=== PATIENT | female | born 1945 | race Caucasian/White ===

== ENCOUNTER → 2016-03-01 | Outpatient (CLI) | payer MEDICARE, MEDICAID ==
[~2016-03-01] MED LIST: ACETAMINOPHEN325 MG PO; ARICEPT ODT10 MG PO; ARICEPT10 MG PO; ASPIR-LOW81 MG PO; ASPIRIN 81M81 MG/TA2 PO; ASPIRIN E.C. 8181 MG PO; ATIVAN 0.50.5 MG/TAB PO; ATIVAN 1MG T1 MG/TAB PO; ATIVAN2 MG PO; BROVANA15 MCG/2 M IH; BUMEX2 MG PO; CALCIUM + D 6001 TA1 PO; CALCIUM600 MG PO; CENA K20 MEQ/15 PO; CENTRUM SILVER1 TA1 PO; CLEOCIN HCL300 MG PO; COLACE 100100 MG/CAP PO; COZAAR 50MG50 MG/TAB PO; CRANBERRY450 MG PO; DEPAKENE 250 MG/1 ML PO; DEPAKENE250 MG PO; DEPAKENE250 MG/5 M PO; DULCOLAX S10 MG/SUPP RC; DULCOLAX TAB5 MG PO; FLEET ENEM1 BOT/133 RC; GEODON 20 MG20 MG PO; GEODON60 MG PO; GEODON80 MG PO; HALDOL 1MG T1 MG/TAB PO; HALDOL 2MG T2 MG/TAB PO; HALDOL 5MG T5 MG/TAB PO; HALDOL 5MG/ML5 MG/ML PO; HALDOL ORAL 22 MG/ML PO; IMODIUM AD1 MG/5 ML PO; IPRATROPIUM BROM3 M1 IH; IPRATROPIUM BROM3 M1 INH; K-DUR 2020 MEQ PO; LASIX 20MG TABL20 MG PO; LASIX 40MG TABL40 MG PO; LASIX 80MG TABL80 MG PO; LAXATIVE FOR WOM5 MG PO; LEVAQUIN 5500 MG/TA1 PO; LEVAQUIN 750MG750 M1 PO; LEVOTHYROXIN0.088 MG PO; LORTAB 5/500 501 TAB PO; LOTRIMIN AF1% TP; LOTRIMIN1% TP; MEDROL 4MG DOSPA4 MG PO; MIRALAX PA17 GM/Dose PO; MUCINEX 60600 MG/TA1 PO; MUCINEX D 600 M1 TER PO; MULTIVITAMINS W PO; MYLANTA 150 ML150 M1; MYLANTA 150 ML150 M1 PO; MYLANTA 360 ML360 ML PO; NOVLOG SQ; PHENERGAN25 MG RC; PHENERGAN25 MG/ML RC; POTASSIUM CH2 MEQ/ML PO; PREDNISONE10 MG PO; PREDNISONE20 MG PO; PRILOSEC 20MG20 MG PO; PROTONIX 40MG T40 MG PO; PULMICORT0.25 MG/2 IH; PULMICORT0.5 MG/2 M IH; PULMICORT90 MCG/Act INH; ROBITUSSIN DM 105 ML PO; SYNTHROID 0.0.025 MG PO; THEO-24 20200 MG/CAP PO; TYLENOL 325MG325 MG PO; TYLENOL 500MG500 MG PO; VITAMIN C500 MG PO; WOMEN'S LAXATIVE5 MG PO; ZAROXOLYN PO; ZYVOX 600MG600 MG PO
[2016-03-01 16:06] LABS: CREATININE, serum 0.6 mg/dL (0.52-1.25); POTASSIUM 4.6 mmol/L (3.4-5.0)
== END ==
LOC: ZCOL.LAB 15:00
PROVIDERS: Internal Medicine
DX: I50.9 Heart failure, unspecified (principal)

== ENCOUNTER 2016-03-15 08:46 | Inpatient (IN) | payer MEDICARE, MEDICAID ==
[~2016-03-15] VITALS: Ht 160 cm; Wt 99.4 kg
[2016-03-15] VITALS (403 sets, daily range): BP systolic 115–128; BP diastolic 66–91; PULSE 80–86; TEMP 99.2–99.7; O2SAT 68–100
[~2016-03-15 08:46] MED LIST changes: -BUMEX2 MG PO; -CENA K20 MEQ/15 PO; -FLEET ENEM1 BOT/133 RC; -TYLENOL 500MG500 MG PO; -WOMEN'S LAXATIVE5 MG PO
[2016-03-15 09:07] LABS: ARTERIAL BLD GAS TCO2 CT 41.9; ARTERIAL BLOOD GAS BASE EXCESS 10.6 (-2-2); ARTERIAL BLOOD GAS HCO3 39.4 meq/L (22-26); ARTERIAL BLOOD GAS PHT 7.31 C (7.35-7.45); ARTERIAL BLOOD GAS PO2 73.7 mmHg (80-100); ARTERIAL BLOOD GAS PO2T 73.7 (80-100); ARTERIAL BLOOD GAS pH 7.31 (7.35-7.45); OXYHEMOGLOBIN 91.8 %
[2016-03-15 09:09] LABS: ATS? YES
[2016-03-15 09:21] LABS: BASO % 0.2 % (0.0-2.0); GRAN # 7.3 (1.4-6.5); LYMPH # 0.8 (1.2-3.4); LYMPH % 9.7 % (20.0-51.0); MEAN CELL VOLUME 87 fl (80.0-100.0); MEAN CORPUSCULAR HGB CONC 31 g/dl (33.0-37.0); MEAN PLATELET VOLUME 10.2 fl (7.4-10.4); MONO # 0.4 (0.1-0.6); MONO % 4.3 % (1.7-9.3); PLATELET COUNT 216 K/mm3 (130-400); RED BLOOD COUNT 3.69 M/mm3 (4.10-5.30); REDCELL DISTRIBUTION WIDTH-CV 16.2 % (11.5-14.5); WHITE BLOOD COUNT 8.6 K/mm3 (4.8-10.8)
[2016-03-15 09:22] LABS: HEMATOCRIT 32.1 % (37.0-47.0); HEMOGLOBIN 9.8 g/dl (12.5-16.0); MEAN CORPUSCULAR HEMOGLOBIN 27 pg (27.0-31.0)
[2016-03-15 09:36] LABS: ADJUSTED CALCIUM 8.8 mg/dL (8.4-10.2); ALBUMIN 3.6 gm/dL (3.5-5.0); BILIRUBIN,TOTAL 0.5 mg/dL (0.0-1.0); C-REACTIVE PROTEIN 6.1 mg/dL (0.0-0.9); CALCIUM 8.5 mg/dL (8.4-10.2); CREATININE, serum 0.91 mg/dL (0.52-1.25); POTASSIUM 5.1 mmol/L (3.4-5.0); TOTAL PROTEIN 7.4 gm/dL (6.4-8.2)
[2016-03-15 09:39] LABS: PH 5 (5-8); SQUAMOUS EPITHELIAL 0-2 /hpf; URINE APPEARANCE Cloudy; URINE BACTERIA Rare /hpf; URINE BILIRUBIN Negative (NEGATIVE); URINE BLOOD Negative (NEGATIVE); URINE COLOR Yellow; URINE GLUCOSE Negative (NEGATIVE); URINE KETONE Negative (NEGATIVE); URINE RBC None Seen /hpf; URINE UROBILINOGEN Negative (NEGATIVE)
[2016-03-15 09:47] LABS: TROPONIN-I 0.085 ng/mL (0.000-0.034)
[2016-03-15 09:56] LABS: INFLUENZA B NEGATIVE
[2016-03-15 10:41] LABS: ARTERIAL BLD GAS O2 SATURATION 92.2 % (92-100); ARTERIAL BLOOD GAS BASE EXCESS 10.6 (-2-2); ARTERIAL BLOOD GAS HCO3 39.5 meq/L (22-26); ARTERIAL BLOOD GAS PO2 73.1 mmHg (80-100); OXYHEMOGLOBIN 91.3 %
[2016-03-15 10:42] LABS: ALLEN TEST NO; ATS? YES
[2016-03-15] MEDS ORDERED: DEPAKENE 250 MG/1 ML PO (18:24)
[2016-03-15] MEDS ORDERED: BUMEX2 MG PO (18:24)
[2016-03-15] MEDS ORDERED: FLEET ENEM1 BOT/133 RC (18:25)
[2016-03-15] MEDS ORDERED: CENA K20 MEQ/15 PO (18:25)
[2016-03-15] MEDS ORDERED: TYLENOL 500MG500 MG PO (18:26)
[2016-03-15] MEDS ORDERED: WOMEN'S LAXATIVE5 MG PO (18:26)
[2016-03-15] MEDS ORDERED: ATIVAN 0.50.5 MG/TAB PO (18:27)
[2016-03-15 21:28] LABS: ARTERIAL BLD GAS O2 SATURATION 87.3 % (92-100); ARTERIAL BLD GAS TCO2 CT 45.4; ARTERIAL BLOOD GAS BASE EXCESS 11.3 (-2-2); ARTERIAL BLOOD GAS HCO3 42.2 meq/L (22-26); ARTERIAL BLOOD GAS PHT 7.22 C (7.35-7.45); ARTERIAL BLOOD GAS PO2 63.6 mmHg (80-100); ARTERIAL BLOOD GAS PO2T 63.6 (80-100); ARTERIAL BLOOD GAS pH 7.22 (7.35-7.45); OXYHEMOGLOBIN 86.6 %
[2016-03-15 21:30] LABS: ALLEN TEST NO; ATS? YES
[2016-03-15 22:54] LABS: ARTERIAL BLD GAS O2 SATURATION 91.9 % (92-100); ARTERIAL BLOOD GAS HCO3 38.9 meq/L (22-26); ARTERIAL BLOOD GAS PO2 80.3 mmHg (80-100); ARTERIAL BLOOD GAS PO2T 80.3 (80-100); OXYHEMOGLOBIN 91.3 %
[2016-03-15 22:56] LABS: ATS? YES
[2016-03-16] VITALS (1080 sets, daily range): BP systolic 112–146; BP diastolic 50–81; PULSE 74–97; TEMP 97.5–99.5; O2SAT 85–100
[2016-03-16 01:16] LABS: ARTERIAL BLD GAS O2 SATURATION 96.7 % (92-100); ARTERIAL BLD GAS TCO2 CT 35.1; ARTERIAL BLOOD GAS BASE EXCESS 7.9 (-2-2); ARTERIAL BLOOD GAS HCO3 33.5 meq/L (22-26); ARTERIAL BLOOD GAS PHT 7.42 C (7.35-7.45); ARTERIAL BLOOD GAS PO2 84.4 mmHg (80-100); ARTERIAL BLOOD GAS PO2T 84.4 (80-100); ARTERIAL BLOOD GAS pH 7.42 (7.35-7.45); ATS? NO; OXYHEMOGLOBIN 96.1 %
[2016-03-16 05:17] LABS: ARTERIAL BLD GAS O2 SATURATION 98.6 % (92-100); ARTERIAL BLD GAS TCO2 CT 28.4; ARTERIAL BLOOD GAS BASE EXCESS 4.5 (-2-2); ARTERIAL BLOOD GAS HCO3 27.4 meq/L (22-26); ARTERIAL BLOOD GAS PHT 7.52 C (7.35-7.45); ARTERIAL BLOOD GAS pH 7.52 (7.35-7.45); OXYHEMOGLOBIN 97.7 %
[2016-03-16 05:18] LABS: ALLEN TEST NO; ARTERIAL BLOOD GAS PO2 131.3 mmHg (80-100); ARTERIAL BLOOD GAS PO2T 131.3 (80-100); ATS? NO
[2016-03-16 05:54] LABS: BASO % 0.1 % (0.0-2.0); GRAN # 6.1 (1.4-6.5); GRAN % 85.1 % (42.2-75.2); LYMPH # 0.6 (1.2-3.4); LYMPH % 7.7 % (20.0-51.0); MEAN CELL VOLUME 87 fl (80.0-100.0); MEAN CORPUSCULAR HGB CONC 30 g/dl (33.0-37.0); MEAN PLATELET VOLUME 10.3 fl (7.4-10.4); MONO # 0.5 (0.1-0.6); MONO % 6.7 % (1.7-9.3); PLATELET COUNT 209 K/mm3 (130-400); RED BLOOD COUNT 3.36 M/mm3 (4.10-5.30); REDCELL DISTRIBUTION WIDTH-CV 15.9 % (11.5-14.5); WHITE BLOOD COUNT 7.2 K/mm3 (4.8-10.8)
[2016-03-16 06:00] LABS: HEMATOCRIT 29.3 % (37.0-47.0); HEMOGLOBIN 8.8 g/dl (12.5-16.0); MEAN CORPUSCULAR HEMOGLOBIN 26 pg (27.0-31.0)
[2016-03-16 06:03] LABS: ALBUMIN 3.3 gm/dL (3.5-5.0); BILIRUBIN,TOTAL 0.6 mg/dL (0.0-1.0); CALCIUM 8.4 mg/dL (8.4-10.2); CREATININE, serum 0.66 mg/dL (0.52-1.25); MAGNESIUM 2.1 mg/dL (1.6-2.3); PHOSPHOROUS 2.3 mg/dL (2.5-4.5); POTASSIUM 3.9 mmol/L (3.4-5.0); TOTAL PROTEIN 6.8 gm/dL (6.4-8.2)
[2016-03-16 06:20] LABS: TROPONIN-I 0.079 ng/mL (0.000-0.034)
[2016-03-16 09:09] LABS: ARTERIAL BLD GAS TCO2 CT 36.7; ARTERIAL BLOOD GAS BASE EXCESS 10.5 (-2-2); ARTERIAL BLOOD GAS HCO3 35.2 meq/L (22-26); ARTERIAL BLOOD GAS PHT 7.48 C (7.35-7.45); ARTERIAL BLOOD GAS PO2 52.2 mmHg (80-100); ARTERIAL BLOOD GAS PO2T 52.2 (80-100); ARTERIAL BLOOD GAS pH 7.48 (7.35-7.45); OXYHEMOGLOBIN 88.4 %
[2016-03-16 09:10] LABS: ATS? NO
[2016-03-16 15:23] LABS: ARTERIAL BLD GAS O2 SATURATION 97.8 % (92-100); ARTERIAL BLD GAS TCO2 CT 37.4; ARTERIAL BLOOD GAS BASE EXCESS 9.5 (-2-2); ARTERIAL BLOOD GAS HCO3 35.6 meq/L (22-26); ARTERIAL BLOOD GAS PHT 7.41 C (7.35-7.45); ARTERIAL BLOOD GAS PO2 119.1 mmHg (80-100); ARTERIAL BLOOD GAS PO2T 119.1 (80-100); ARTERIAL BLOOD GAS pH 7.41 (7.35-7.45); OXYHEMOGLOBIN 96.9 %
[2016-03-16 15:25] LABS: ATS? NO
[2016-03-17] VITALS (1325 sets, daily range): BP systolic 126–147; BP diastolic 53–70; PULSE 58–79; TEMP 97.6–99.6; O2SAT 72–100
[2016-03-17 01:08] LABS: ARTERIAL BLD GAS O2 SATURATION 98.8 % (92-100); ARTERIAL BLD GAS TCO2 CT 33.5; ARTERIAL BLOOD GAS BASE EXCESS 7.5 (-2-2); ARTERIAL BLOOD GAS HCO3 32.1 meq/L (22-26); ARTERIAL BLOOD GAS PHT 7.46 C (7.35-7.45); ARTERIAL BLOOD GAS pH 7.46 (7.35-7.45)
[2016-03-17 01:09] LABS: ALLEN TEST NO; ARTERIAL BLOOD GAS PO2 169.7 mmHg (80-100); ARTERIAL BLOOD GAS PO2T 169.7 (80-100); ATS? NO
[2016-03-17 05:07] LABS: ARTERIAL BLD GAS O2 SATURATION 98.4 % (92-100); ARTERIAL BLD GAS TCO2 CT 31.5; ARTERIAL BLOOD GAS BASE EXCESS 5.8 (-2-2); ARTERIAL BLOOD GAS HCO3 30.2 meq/L (22-26); ARTERIAL BLOOD GAS PHT 7.46 C (7.35-7.45); ARTERIAL BLOOD GAS pH 7.46 (7.35-7.45); OXYHEMOGLOBIN 97.5 %
[2016-03-17 05:09] LABS: ALLEN TEST NO; ATS? NO
[2016-03-17 05:25] LABS: BASO % 0.2 % (0.0-2.0); GRAN % 77.8 % (42.2-75.2); LYMPH # 0.9 (1.2-3.4); LYMPH % 13.9 % (20.0-51.0); MEAN CELL VOLUME 83 fl (80.0-100.0); MEAN CORPUSCULAR HGB CONC 32 g/dl (33.0-37.0); MEAN PLATELET VOLUME 10.3 fl (7.4-10.4); MONO # 0.5 (0.1-0.6); MONO % 7.5 % (1.7-9.3); PLATELET COUNT 203 K/mm3 (130-400); RED BLOOD COUNT 3.47 M/mm3 (4.10-5.30); REDCELL DISTRIBUTION WIDTH-CV 15.8 % (11.5-14.5); WHITE BLOOD COUNT 6.4 K/mm3 (4.8-10.8)
[2016-03-17 05:26] LABS: HEMOGLOBIN 9.2 g/dl (12.5-16.0); MEAN CORPUSCULAR HEMOGLOBIN 27 pg (27.0-31.0)
[2016-03-17 05:27] LABS: HEMATOCRIT 28.8 % (37.0-47.0)
[2016-03-17 05:39] LABS: ADJUSTED CALCIUM 8.6 mg/dL (8.4-10.2); ALBUMIN 3.1 gm/dL (3.5-5.0); BILIRUBIN,TOTAL 0.4 mg/dL (0.0-1.0); CALCIUM 7.9 mg/dL (8.4-10.2); CREATININE, serum 0.72 mg/dL (0.52-1.25); PHOSPHOROUS 3.8 mg/dL (2.5-4.5); POTASSIUM 3.7 mmol/L (3.4-5.0); TOTAL PROTEIN 6.4 gm/dL (6.4-8.2)
[2016-03-18] VITALS (948 sets, daily range): BP systolic 113–159; BP diastolic 41–63; PULSE 53–74; TEMP 97–98.8; O2SAT 62–100
[2016-03-18 04:43] LABS: ARTERIAL BLD GAS O2 SATURATION 97.1 % (92-100); ARTERIAL BLD GAS TCO2 CT 30.8; ARTERIAL BLOOD GAS HCO3 29.3 meq/L (22-26); ARTERIAL BLOOD GAS PHT 7.41 C (7.35-7.45); ARTERIAL BLOOD GAS PO2 102.1 mmHg (80-100); ARTERIAL BLOOD GAS PO2T 102.1 (80-100); ARTERIAL BLOOD GAS pH 7.41 (7.35-7.45); OXYHEMOGLOBIN 96.2 %
[2016-03-18 04:46] LABS: ALLEN TEST NO
[2016-03-18 05:46] LABS: MEAN CELL VOLUME 84 fl (80.0-100.0); MEAN CORPUSCULAR HGB CONC 32 g/dl (33.0-37.0); MEAN PLATELET VOLUME 10.4 fl (7.4-10.4); PLATELET COUNT 191 K/mm3 (130-400); RED BLOOD COUNT 3.58 M/mm3 (4.10-5.30); REDCELL DISTRIBUTION WIDTH-CV 16.1 % (11.5-14.5); WHITE BLOOD COUNT 6.6 K/mm3 (4.8-10.8)
[2016-03-18 05:58] LABS: ADJUSTED CALCIUM 8.6 mg/dL (8.4-10.2); ALBUMIN 2.9 gm/dL (3.5-5.0); BILIRUBIN,TOTAL 0.3 mg/dL (0.0-1.0); CALCIUM 7.7 mg/dL (8.4-10.2); CREATININE, serum 0.68 mg/dL (0.52-1.25); PHOSPHOROUS 3.5 mg/dL (2.5-4.5); POTASSIUM 3.4 mmol/L (3.4-5.0); TOTAL PROTEIN 6.1 gm/dL (6.4-8.2)
[2016-03-18 05:59] LABS: HEMOGLOBIN 9.5 g/dl (12.5-16.0); MEAN CORPUSCULAR HEMOGLOBIN 27 pg (27.0-31.0)
[2016-03-18 06:00] LABS: ADD PATHOLOGY DIFF REVIEW NO
[2016-03-18 08:23] LABS: BAND 17 % (0-10); METAMYELOCYTE 2 % (0-0); MYELOCYTE 1 % (0-0); NEUTROPHILS 66 % (42.0-75.2); TOTAL CELLS COUNTED 100
[2016-03-18 08:24] LABS: ANISOCYTOSIS 2+; PLATELET ESTIMATE NORMAL (NORMAL)
[2016-03-18 08:26] LABS: HYPOCHROMIA 1+; TARGET CELLS 2+
[2016-03-19] VITALS (1146 sets, daily range): BP systolic 129–169; BP diastolic 53–99; PULSE 51–73; TEMP 96.3–98; O2SAT 70–100
[2016-03-19 05:17] LABS: ARTERIAL BLD GAS O2 SATURATION 96.7 % (92-100); ARTERIAL BLD GAS TCO2 CT 29.4; ARTERIAL BLOOD GAS BASE EXCESS 2.1 (-2-2); ARTERIAL BLOOD GAS HCO3 27.9 meq/L (22-26); ARTERIAL BLOOD GAS PO2 94.6 mmHg (80-100); ARTERIAL BLOOD GAS pH 7.38 (7.35-7.45)
[2016-03-19 05:18] LABS: ALLEN TEST NO; ATS? NO
[2016-03-19 05:54] LABS: MEAN CELL VOLUME 84 fl (80.0-100.0); MEAN CORPUSCULAR HGB CONC 32 g/dl (33.0-37.0); MEAN PLATELET VOLUME 11.1 fl (7.4-10.4); PLATELET COUNT 200 K/mm3 (130-400); RED BLOOD COUNT 3.82 M/mm3 (4.10-5.30); REDCELL DISTRIBUTION WIDTH-CV 16.4 % (11.5-14.5); WHITE BLOOD COUNT 6.5 K/mm3 (4.8-10.8)
[2016-03-19 05:57] LABS: ADD PATHOLOGY DIFF REVIEW NO; HEMATOCRIT 32.2 % (37.0-47.0); HEMOGLOBIN 10.2 g/dl (12.5-16.0); MEAN CORPUSCULAR HEMOGLOBIN 27 pg (27.0-31.0)
[2016-03-19 06:04] LABS: ADJUSTED CALCIUM 8.9 mg/dL (8.4-10.2); ALBUMIN 2.9 gm/dL (3.5-5.0); BILIRUBIN,TOTAL 0.3 mg/dL (0.0-1.0); CREATININE, serum 0.64 mg/dL (0.52-1.25)
[2016-03-19 07:36] LABS: ANISOCYTOSIS 1+; BAND 5 % (0-10); HYPOCHROMIA 2+; NEUTROPHILS 71 % (42.0-75.2); TOTAL CELLS COUNTED 100
[2016-03-19 07:37] LABS: MICROCYTOSIS 2+
[2016-03-19 09:39] LABS: ARTERIAL BLD GAS O2 SATURATION 96.7 % (92-100); ARTERIAL BLD GAS TCO2 CT 29.4; ARTERIAL BLOOD GAS BASE EXCESS 2.1 (-2-2); ARTERIAL BLOOD GAS HCO3 27.9 meq/L (22-26); ARTERIAL BLOOD GAS PHT 7.38 C (7.35-7.45); ARTERIAL BLOOD GAS PO2 94.6 mmHg (80-100); ARTERIAL BLOOD GAS PO2T 94.6 (80-100); ARTERIAL BLOOD GAS pH 7.38 (7.35-7.45)
[2016-03-19 14:07] LABS: ATS? NO
[2016-03-20] VITALS (1156 sets, daily range): BP systolic 111–159; BP diastolic 55–79; PULSE 53–64; TEMP 96.4–97.8; O2SAT 49–100
[2016-03-20 04:52] LABS: ARTERIAL BLOOD GAS pH 7.37 (7.35-7.45)
[2016-03-20 04:53] LABS: ALLEN TEST YES; ALLENS TEST RESULT PASS; ARTERIAL BLD GAS O2 SATURATION 94.6 % (92-100); ARTERIAL BLD GAS TCO2 CT 34.5; ARTERIAL BLOOD GAS BASE EXCESS 6.1 (-2-2); ARTERIAL BLOOD GAS HCO3 32.7 meq/L (22-26); ARTERIAL BLOOD GAS PO2 76.2 mmHg (80-100); ATS? YES
[2016-03-20 05:48] LABS: MEAN CELL VOLUME 84 fl (80.0-100.0); MEAN CORPUSCULAR HGB CONC 32 g/dl (33.0-37.0); MEAN PLATELET VOLUME 10.6 fl (7.4-10.4); PLATELET COUNT 197 K/mm3 (130-400); RED BLOOD COUNT 3.87 M/mm3 (4.10-5.30); REDCELL DISTRIBUTION WIDTH-CV 16.6 % (11.5-14.5); WHITE BLOOD COUNT 6.8 K/mm3 (4.8-10.8)
[2016-03-20 06:00] LABS: CALCIUM 7.9 mg/dL (8.4-10.2); CREATININE, serum 0.61 mg/dL (0.52-1.25); MAGNESIUM 2.1 mg/dL (1.6-2.3); PHOSPHOROUS 3.4 mg/dL (2.5-4.5); POTASSIUM 3.4 mmol/L (3.4-5.0)
[2016-03-20 06:03] LABS: HEMATOCRIT 32.5 % (37.0-47.0); HEMOGLOBIN 10.3 g/dl (12.5-16.0); MEAN CORPUSCULAR HEMOGLOBIN 27 pg (27.0-31.0)
[2016-03-20 06:04] LABS: ADD PATHOLOGY DIFF REVIEW NO
[2016-03-20 06:06] LABS: ARTERIAL BLD GAS O2 SATURATION 94.6 % (92-100); ARTERIAL BLD GAS TCO2 CT 34.5; ARTERIAL BLOOD GAS BASE EXCESS 6.1 (-2-2); ARTERIAL BLOOD GAS HCO3 32.7 meq/L (22-26); ARTERIAL BLOOD GAS PHT 7.37 C (7.35-7.45); ARTERIAL BLOOD GAS PO2 76.2 mmHg (80-100); ARTERIAL BLOOD GAS PO2T 76.2 (80-100); ARTERIAL BLOOD GAS pH 7.37 (7.35-7.45)
[2016-03-20 06:17] LABS: ANISOCYTOSIS 1+; BAND 23 % (0-10); METAMYELOCYTE 2 % (0-0); NEUTROPHILS 55 % (42.0-75.2); PLATELET ESTIMATE NORMAL (NORMAL); TOTAL CELLS COUNTED 100
[2016-03-20 11:29] LABS: ATS? NO
[2016-03-20 12:21] LABS: ARTERIAL BLD GAS O2 SATURATION 96.2 % (92-100); ARTERIAL BLD GAS TCO2 CT 36.8; ARTERIAL BLOOD GAS BASE EXCESS 6.1 (-2-2); ARTERIAL BLOOD GAS HCO3 34.6 meq/L (22-26); ARTERIAL BLOOD GAS PHT 7.31 C (7.35-7.45); ARTERIAL BLOOD GAS PO2 94.7 mmHg (80-100); ARTERIAL BLOOD GAS PO2T 94.7 (80-100); ARTERIAL BLOOD GAS pH 7.31 (7.35-7.45); OXYHEMOGLOBIN 95.3 %
[2016-03-20 12:53] LABS: ARTERIAL BLOOD GAS pH 7.31 (7.35-7.45)
[2016-03-20 12:54] LABS: ARTERIAL BLOOD GAS BASE EXCESS 6.1 (-2-2); ARTERIAL BLOOD GAS HCO3 34.6 meq/L (22-26); ARTERIAL BLOOD GAS PO2 94.7 mmHg (80-100)
[2016-03-20 12:55] LABS: ALLEN TEST NO; ARTERIAL BLD GAS O2 SATURATION 96.2 % (92-100); ARTERIAL BLD GAS TCO2 CT 36.8; ATS? YES
[2016-03-20 14:46] LABS: ARTERIAL BLD GAS O2 SATURATION 96.5 % (92-100); ARTERIAL BLD GAS TCO2 CT 36.6; ARTERIAL BLOOD GAS BASE EXCESS 6.6 (-2-2); ARTERIAL BLOOD GAS HCO3 34.6 meq/L (22-26); ARTERIAL BLOOD GAS PHT 7.33 C (7.35-7.45); ARTERIAL BLOOD GAS PO2 95.4 mmHg (80-100); ARTERIAL BLOOD GAS PO2T 95.4 (80-100); ARTERIAL BLOOD GAS pH 7.33 (7.35-7.45); OXYHEMOGLOBIN 95.9 %
[2016-03-20 14:48] LABS: ATS? YES
[2016-03-20 17:01] LABS: ATS? YES
[2016-03-20 19:59] LABS: ARTERIAL BLD GAS O2 SATURATION 95.3 % (92-100); ARTERIAL BLD GAS TCO2 CT 29.9; ARTERIAL BLOOD GAS BASE EXCESS 3.3 (-2-2); ARTERIAL BLOOD GAS HCO3 28.5 meq/L (22-26); ARTERIAL BLOOD GAS PHT 7.41 C (7.35-7.45); ARTERIAL BLOOD GAS PO2 79.8 mmHg (80-100); ARTERIAL BLOOD GAS PO2T 79.8 (80-100); ARTERIAL BLOOD GAS pH 7.41 (7.35-7.45); OXYHEMOGLOBIN 94.6 %
[2016-03-20 20:02] LABS: ALLEN TEST YES; ALLENS TEST RESULT PASS; ATS? YES
[2016-03-21] VITALS (1439 sets, daily range): BP systolic 120–149; BP diastolic 60–87; PULSE 51–87; TEMP 97.2–98.5; O2SAT 91–100
[2016-03-21 04:52] LABS: ARTERIAL BLD GAS O2 SATURATION 94.2 % (92-100); ARTERIAL BLD GAS TCO2 CT 34.8; ARTERIAL BLOOD GAS BASE EXCESS 7.4 (-2-2); ARTERIAL BLOOD GAS HCO3 33.2 meq/L (22-26); ARTERIAL BLOOD GAS PHT 7.42 C (7.35-7.45); ARTERIAL BLOOD GAS PO2 73.4 mmHg (80-100); ARTERIAL BLOOD GAS PO2T 73.4 (80-100); ARTERIAL BLOOD GAS pH 7.42 (7.35-7.45); OXYHEMOGLOBIN 93.6 %
[2016-03-21 05:13] LABS: GRAN # 5.6 (1.4-6.5); GRAN % 83.7 % (42.2-75.2); LYMPH # 0.7 (1.2-3.4); LYMPH % 10.5 % (20.0-51.0); MEAN CELL VOLUME 83 fl (80.0-100.0); MEAN CORPUSCULAR HGB CONC 33 g/dl (33.0-37.0); MEAN PLATELET VOLUME 10.6 fl (7.4-10.4); MONO # 0.3 (0.1-0.6); MONO % 4.5 % (1.7-9.3); PLATELET COUNT 229 K/mm3 (130-400); RED BLOOD COUNT 3.84 M/mm3 (4.10-5.30); REDCELL DISTRIBUTION WIDTH-CV 16.5 % (11.5-14.5); WHITE BLOOD COUNT 6.7 K/mm3 (4.8-10.8)
[2016-03-21 05:15] LABS: HEMATOCRIT 31.9 % (37.0-47.0); HEMOGLOBIN 10.5 g/dl (12.5-16.0); MEAN CORPUSCULAR HEMOGLOBIN 27 pg (27.0-31.0)
[2016-03-21 05:30] LABS: CALCIUM 7.9 mg/dL (8.4-10.2); CREATININE, serum 0.59 mg/dL (0.52-1.25); MAGNESIUM 2.1 mg/dL (1.6-2.3); PHOSPHOROUS 3.6 mg/dL (2.5-4.5)
[2016-03-21 05:32] LABS: ALLEN TEST YES; ALLENS TEST RESULT PASS; ATS? YES
[2016-03-22] VITALS (1276 sets, daily range): BP systolic 107–149; BP diastolic 57–105; PULSE 60–107; TEMP 97–98.4; O2SAT 55–100
[2016-03-22 04:26] LABS: ALLEN TEST YES; ALLENS TEST RESULT PASS; ARTERIAL BLD GAS O2 SATURATION 96.2 % (92-100); ARTERIAL BLD GAS TCO2 CT 33.2; ARTERIAL BLOOD GAS BASE EXCESS 6.1 (-2-2); ARTERIAL BLOOD GAS HCO3 31.7 meq/L (22-26); ARTERIAL BLOOD GAS PHT 7.42 C (7.35-7.45); ARTERIAL BLOOD GAS pH 7.42 (7.35-7.45); ATS? YES; OXYHEMOGLOBIN 95.7 %
[2016-03-22 06:43] LABS: MEAN CELL VOLUME 84 fl (80.0-100.0); MEAN CORPUSCULAR HGB CONC 31 g/dl (33.0-37.0); MEAN PLATELET VOLUME 10.4 fl (7.4-10.4); PLATELET COUNT 225 K/mm3 (130-400); RED BLOOD COUNT 3.74 M/mm3 (4.10-5.30); REDCELL DISTRIBUTION WIDTH-CV 16.9 % (11.5-14.5); WHITE BLOOD COUNT 6.1 K/mm3 (4.8-10.8)
[2016-03-22 06:45] LABS: HEMATOCRIT 31.3 % (37.0-47.0); HEMOGLOBIN 9.8 g/dl (12.5-16.0); MEAN CORPUSCULAR HEMOGLOBIN 26 pg (27.0-31.0)
[2016-03-22 06:46] LABS: ADD PATHOLOGY DIFF REVIEW NO
[2016-03-22 06:51] LABS: CREATININE, serum 0.59 mg/dL (0.52-1.25); MAGNESIUM 2.1 mg/dL (1.6-2.3); PHOSPHOROUS 3.8 mg/dL (2.5-4.5); POTASSIUM 3.4 mmol/L (3.4-5.0)
[2016-03-22 07:13] LABS: BAND 4 % (0-10); HYPOCHROMIA 2+; METAMYELOCYTE 1 % (0-0); MYELOCYTE 2 % (0-0); NEUTROPHILS 71 % (42.0-75.2); PLATELET ESTIMATE NORMAL (NORMAL); TOTAL CELLS COUNTED 100
[2016-03-23] VITALS (819 sets, daily range): BP systolic 105–156; BP diastolic 50–83; PULSE 77–99; TEMP 97–98.7; O2SAT 79–100
[2016-03-23 04:24] LABS: ALLEN TEST YES; ALLENS TEST RESULT PASS; ARTERIAL BLD GAS O2 SATURATION 95.7 % (92-100); ARTERIAL BLD GAS TCO2 CT 35.8; ARTERIAL BLOOD GAS BASE EXCESS 6.5 (-2-2); ARTERIAL BLOOD GAS HCO3 33.8 meq/L (22-26); ARTERIAL BLOOD GAS PHT 7.36 C (7.35-7.45); ARTERIAL BLOOD GAS PO2 86.6 mmHg (80-100); ARTERIAL BLOOD GAS PO2T 86.6 (80-100); ARTERIAL BLOOD GAS pH 7.36 (7.35-7.45); ATS? YES; OXYHEMOGLOBIN 94.7 %
[2016-03-23 05:43] LABS: MEAN CELL VOLUME 83 fl (80.0-100.0); MEAN CORPUSCULAR HGB CONC 32 g/dl (33.0-37.0); MEAN PLATELET VOLUME 10.1 fl (7.4-10.4); PLATELET COUNT 265 K/mm3 (130-400); RED BLOOD COUNT 4.19 M/mm3 (4.10-5.30); REDCELL DISTRIBUTION WIDTH-CV 16.8 % (11.5-14.5); WHITE BLOOD COUNT 9.2 K/mm3 (4.8-10.8)
[2016-03-23 05:48] LABS: HEMATOCRIT 34.9 % (37.0-47.0); HEMOGLOBIN 11.1 g/dl (12.5-16.0); MEAN CORPUSCULAR HEMOGLOBIN 26 pg (27.0-31.0)
[2016-03-23 05:49] LABS: ADD PATHOLOGY DIFF REVIEW NO
[2016-03-23 06:02] LABS: CALCIUM 8.6 mg/dL (8.4-10.2); CREATININE, serum 0.59 mg/dL (0.52-1.25); MAGNESIUM 2.1 mg/dL (1.6-2.3); PHOSPHOROUS 3.7 mg/dL (2.5-4.5); POTASSIUM 3.6 mmol/L (3.4-5.0)
[2016-03-23 06:07] LABS: ANISOCYTOSIS 1+; BAND 4 % (0-10); METAMYELOCYTE 1 % (0-0); NEUTROPHILS 72 % (42.0-75.2); TARGET CELLS 1+; TOTAL CELLS COUNTED 100
[2016-03-23 06:08] LABS: PLATELET ESTIMATE NORMAL (NORMAL)
[2016-03-24] VITALS (9 sets, daily range): BP systolic 80–129; BP diastolic 38–75; PULSE 50–120; TEMP 97–98.8
[2016-03-24 07:22] LABS: BASO % 0.1 % (0.0-2.0); EOS # 0.1 (0.0-0.7); EOS % 0.4 % (0-4.0); GRAN % 74.6 % (42.2-75.2); LYMPH # 1.8 (1.2-3.4); LYMPH % 14.7 % (20.0-51.0); MEAN CELL VOLUME 83 fl (80.0-100.0); MEAN CORPUSCULAR HGB CONC 32 g/dl (33.0-37.0); MEAN PLATELET VOLUME 10.4 fl (7.4-10.4); MONO % 8.2 % (1.7-9.3); PLATELET COUNT 256 K/mm3 (130-400); RED BLOOD COUNT 3.83 M/mm3 (4.10-5.30); REDCELL DISTRIBUTION WIDTH-CV 16.6 % (11.5-14.5); WHITE BLOOD COUNT 12.1 K/mm3 (4.8-10.8)
[2016-03-24 07:37] LABS: CALCIUM 8.8 mg/dL (8.4-10.2); CREATININE, serum 0.74 mg/dL (0.52-1.25); MAGNESIUM 2.2 mg/dL (1.6-2.3); PHOSPHOROUS 3.6 mg/dL (2.5-4.5); POTASSIUM 3.9 mmol/L (3.4-5.0)
[2016-03-24 07:39] LABS: HEMATOCRIT 31.7 % (37.0-47.0); MEAN CORPUSCULAR HEMOGLOBIN 26 pg (27.0-31.0)
[2016-03-24 10:24] LABS: THEOPHYLLINE 14.8 ug/mL (10.0-20.0)
[2016-03-25] VITALS (347 sets, daily range): BP systolic 54–170; BP diastolic 31–81; PULSE 73–122; TEMP 97–98.5; O2SAT 85–100
[2016-03-25 06:41] LABS: BASO % 0.1 % (0.0-2.0); EOS # 0.1 (0.0-0.7); EOS % 0.3 % (0-4.0); GRAN # 12.3 (1.4-6.5); GRAN % 79.3 % (42.2-75.2); LYMPH # 1.6 (1.2-3.4); LYMPH % 10.3 % (20.0-51.0); MEAN CELL VOLUME 84 fl (80.0-100.0); MEAN CORPUSCULAR HGB CONC 31 g/dl (33.0-37.0); MONO # 1.3 (0.1-0.6); MONO % 8.7 % (1.7-9.3); PLATELET COUNT 224 K/mm3 (130-400); RED BLOOD COUNT 3.56 M/mm3 (4.10-5.30); REDCELL DISTRIBUTION WIDTH-CV 16.5 % (11.5-14.5); WHITE BLOOD COUNT 15.5 K/mm3 (4.8-10.8)
[2016-03-25 06:45] LABS: HEMATOCRIT 29.9 % (37.0-47.0); HEMOGLOBIN 9.4 g/dl (12.5-16.0); MEAN CORPUSCULAR HEMOGLOBIN 26 pg (27.0-31.0)
[2016-03-25 06:53] LABS: CALCIUM 8.9 mg/dL (8.4-10.2); CREATININE, serum 0.71 mg/dL (0.52-1.25); MAGNESIUM 2.2 mg/dL (1.6-2.3); PHOSPHOROUS 3.5 mg/dL (2.5-4.5); POTASSIUM 3.9 mmol/L (3.4-5.0)
[2016-03-25 16:36] LABS: ADD PATHOLOGY DIFF REVIEW NO; CALCIUM 9.1 mg/dL (8.4-10.2); CREATININE, serum 0.86 mg/dL (0.52-1.25); HEMATOCRIT 34.6 % (37.0-47.0); HEMOGLOBIN 10.1 g/dl (12.5-16.0); MEAN CELL VOLUME 90 fl (80.0-100.0); MEAN CORPUSCULAR HEMOGLOBIN 26 pg (27.0-31.0); MEAN CORPUSCULAR HGB CONC 29 g/dl (33.0-37.0); MEAN PLATELET VOLUME 10.2 fl (7.4-10.4); PHOSPHOROUS 7.2 mg/dL (2.5-4.5); PLATELET COUNT 234 K/mm3 (130-400); POTASSIUM 4.4 mmol/L (3.4-5.0); RED BLOOD COUNT 3.85 M/mm3 (4.10-5.30); REDCELL DISTRIBUTION WIDTH-CV 17.2 % (11.5-14.5); WHITE BLOOD COUNT 17.5 K/mm3 (4.8-10.8)
[2016-03-25 16:44] LABS: TROPONIN-I 0.042 ng/mL (0.000-0.034)
[2016-03-25 17:15] LABS: ANISOCYTOSIS 2+; BAND 8 % (0-10); NEUTROPHILS 71 % (42.0-75.2); PLATELET ESTIMATE NORMAL (NORMAL); TOTAL CELLS COUNTED 100
[2016-03-25 17:26] LABS: ARTERIAL BLD GAS O2 SATURATION 99.1 % (92-100); ARTERIAL BLD GAS TCO2 CT 37.2; ARTERIAL BLOOD GAS BASE EXCESS 8.7 (-2-2); ARTERIAL BLOOD GAS HCO3 35.4 meq/L (22-26); ARTERIAL BLOOD GAS PHT 7.38 C (7.35-7.45); ARTERIAL BLOOD GAS pH 7.38 (7.35-7.45); OXYHEMOGLOBIN 98.5 %
[2016-03-25 17:27] LABS: ABG VENTILATOR TIDAL VOLUME 420 mL; ATS? YES
[2016-03-25 19:54] LABS: VENOUS BLOOD GAS SAO2 32.2 % (60-80)
[2016-03-25 19:55] LABS: VENOUS BLOOD GAS SITE CENTRAL LINE
[2016-03-26] VITALS (937 sets, daily range): BP systolic 116–135; BP diastolic 51–66; PULSE 75–99; TEMP 97.8–99.7; O2SAT 82–100
[2016-03-26 01:44] LABS: VENOUS BLOOD GAS BE 7.8 (-4-4); VENOUS BLOOD GAS SAO2 67.2 % (60-80)
[2016-03-26 01:45] LABS: VENOUS BLOOD GAS SITE CENTRAL LINE
[2016-03-26 04:37] LABS: ALLEN TEST YES; ALLENS TEST RESULT PASS; ARTERIAL BLD GAS O2 SATURATION 92.1 % (92-100); ARTERIAL BLD GAS TCO2 CT 32.8; ARTERIAL BLOOD GAS BASE EXCESS 8.6 (-2-2); ARTERIAL BLOOD GAS HCO3 31.6 meq/L (22-26); ARTERIAL BLOOD GAS PHT 7.54 C (7.35-7.45); ARTERIAL BLOOD GAS PO2 59.1 mmHg (80-100); ARTERIAL BLOOD GAS PO2T 59.1 (80-100); ARTERIAL BLOOD GAS pH 7.54 (7.35-7.45); ATS? YES; OXYHEMOGLOBIN 91.4 %
[2016-03-26 05:13] LABS: BASO % 0.1 % (0.0-2.0); GRAN # 9.6 (1.4-6.5); GRAN % 86.8 % (42.2-75.2); LYMPH # 0.9 (1.2-3.4); LYMPH % 7.7 % (20.0-51.0); MEAN CORPUSCULAR HGB CONC 33 g/dl (33.0-37.0); MEAN PLATELET VOLUME 10.4 fl (7.4-10.4); MONO # 0.4 (0.1-0.6); PLATELET COUNT 188 K/mm3 (130-400); RED BLOOD COUNT 2.93 M/mm3 (4.10-5.30); REDCELL DISTRIBUTION WIDTH-CV 16.2 % (11.5-14.5); WHITE BLOOD COUNT 11.1 K/mm3 (4.8-10.8)
[2016-03-26 05:15] LABS: HEMOGLOBIN 7.8 g/dl (12.5-16.0); MEAN CELL VOLUME 82 fl (80.0-100.0); MEAN CORPUSCULAR HEMOGLOBIN 27 pg (27.0-31.0)
[2016-03-26 05:32] LABS: ADJUSTED CALCIUM 9.4 mg/dL (8.4-10.2); ALBUMIN 2.6 gm/dL (3.5-5.0); BILIRUBIN,TOTAL 0.7 mg/dL (0.0-1.0); CALCIUM 8.3 mg/dL (8.4-10.2); CREATININE, serum 0.71 mg/dL (0.52-1.25); MAGNESIUM 1.9 mg/dL (1.6-2.3); POTASSIUM 3.2 mmol/L (3.4-5.0); TOTAL PROTEIN 5.4 gm/dL (6.4-8.2)
[2016-03-26 06:01] LABS: TROPONIN-I 0.921 ng/mL (0.000-0.034)
[2016-03-26 11:52] LABS: ARTERIAL BLD GAS O2 SATURATION 95.8 % (92-100); ARTERIAL BLD GAS TCO2 CT 28.3; ARTERIAL BLOOD GAS BASE EXCESS 3.5 (-2-2); ARTERIAL BLOOD GAS HCO3 27.2 meq/L (22-26); ARTERIAL BLOOD GAS PHT 7.48 C (7.35-7.45); ARTERIAL BLOOD GAS PO2 90.3 mmHg (80-100); ARTERIAL BLOOD GAS PO2T 90.3 (80-100); ARTERIAL BLOOD GAS pH 7.48 (7.35-7.45); OXYHEMOGLOBIN 94.8 %
[2016-03-26 11:53] LABS: VENOUS BLOOD GAS BE 2.2 (-4-4); VENOUS BLOOD GAS SAO2 94.6 % (60-80)
[2016-03-26 11:59] LABS: VENOUS BLOOD GAS SITE VENIPUNCTURE
[2016-03-26 11:59] LABS: ATS? YES
[2016-03-26 12:00] LABS: ABG VENTILATOR TIDAL VOLUME 420 mL
[2016-03-26 12:05] LABS: HEMOGLOBIN 7.8 g/dl (12.5-16.0)
[2016-03-26 12:19] LABS: VENOUS BLOOD GAS BE 7.9 (-4-4); VENOUS BLOOD GAS SAO2 76.6 % (60-80); VENOUS BLOOD GAS SITE VENIPUNCTURE
[2016-03-26 18:57] LABS: BASO % 0.1 % (0.0-2.0); GRAN # 8.2 (1.4-6.5); GRAN % 84.9 % (42.2-75.2); LYMPH # 0.9 (1.2-3.4); LYMPH % 9.3 % (20.0-51.0); MEAN CELL VOLUME 82 fl (80.0-100.0); MEAN CORPUSCULAR HGB CONC 33 g/dl (33.0-37.0); MEAN PLATELET VOLUME 10.1 fl (7.4-10.4); MONO # 0.4 (0.1-0.6); MONO % 4.3 % (1.7-9.3); PLATELET COUNT 194 K/mm3 (130-400); REDCELL DISTRIBUTION WIDTH-CV 16.1 % (11.5-14.5); WHITE BLOOD COUNT 9.6 K/mm3 (4.8-10.8)
[2016-03-26 19:01] LABS: HEMATOCRIT 24.5 % (37.0-47.0); MEAN CORPUSCULAR HEMOGLOBIN 27 pg (27.0-31.0)
== END 2016-03-26 19:23 | disposition short-term general hospital (02) | DRG 163 ==
LOC: COL.ER 08:46 → ICU 10:22 → MEDICAL 03-23 15:22 → ICU 03-25 16:15
PROVIDERS: Emergency Medicine; Internal Medicine; Internal Medicine Pulmonary Disease; Nurse Practitioner Family
PROC: 5A1955Z Respiratory Ventilation, Greater than 96 Consecutive Hours (ICD-10-PCS; 2016-03-15)
PROC: 0BH17EZ Insertion of Endotracheal Airway into Trachea, Via Natural or Artificial Opening (ICD-10-PCS; principal; 2016-03-16)
PROC: 0B968ZZ Drainage of Right Lower Lobe Bronchus, Via Natural or Artificial Opening Endoscopic (ICD-10-PCS; 2016-03-16)
PROC: 0B9B8ZZ Drainage of Left Lower Lobe Bronchus, Via Natural or Artificial Opening Endoscopic (ICD-10-PCS; 2016-03-16)
PROC: 0B958ZZ Drainage of Right Middle Lobe Bronchus, Via Natural or Artificial Opening Endoscopic (ICD-10-PCS; 2016-03-16)
PROC: 0B988ZZ Drainage of Left Upper Lobe Bronchus, Via Natural or Artificial Opening Endoscopic (ICD-10-PCS; 2016-03-16)
PROC: 0B9B8ZZ Drainage of Left Lower Lobe Bronchus, Via Natural or Artificial Opening Endoscopic (ICD-10-PCS; 2016-03-19)
PROC: 0BC68ZZ Extirpation of Matter from Right Lower Lobe Bronchus, Via Natural or Artificial Opening Endoscopic (ICD-10-PCS; 2016-03-19)
PROC: 0B968ZZ Drainage of Right Lower Lobe Bronchus, Via Natural or Artificial Opening Endoscopic (ICD-10-PCS; 2016-03-26)
PROC: 0BJ08ZZ Inspection of Tracheobronchial Tree, Via Natural or Artificial Opening Endoscopic (ICD-10-PCS; 2016-03-26)
DX: J96.21 Acute and chronic respiratory failure with hypoxia (principal); J10.00 Influenza due to other identified influenza virus with unspecified type of pneumonia; I46.9 Cardiac arrest, cause unspecified; I21.4 Non-ST elevation (NSTEMI) myocardial infarction; N39.0 Urinary tract infection, site not specified; J44.1 Chronic obstructive pulmonary disease with (acute) exacerbation; I50.32 Chronic diastolic (congestive) heart failure; J98.11 Atelectasis; G40.801 Other epilepsy, not intractable, with status epilepticus; J96.22 Acute and chronic respiratory failure with hypercapnia; I48.0 Paroxysmal atrial fibrillation; F20.9 Schizophrenia, unspecified; F03.90 Unspecified dementia, unspecified severity, without behavioral disturbance, psychotic disturbance, mood disturbance, and anxiety; E11.9 Type 2 diabetes mellitus without complications; I27.2 Other secondary pulmonary hypertension; B96.20 Unspecified Escherichia coli [E. coli] as the cause of diseases classified elsewhere; E87.6 Hypokalemia
CPT/HCPCS: 99223-AI; 99232-AI; 99233-AI; C1751; J0171; J0282; J0360; J0696; J1265; J1644; J1650; J1720; J1815; J1953; J1956; J2405; J2543; J2704; J2920; J2930; J3010; J3370; J3480; J7030; J7050; J7060; J7512; Q9967